=== PATIENT | female | born 1950 | race Caucasian/White ===

== ENCOUNTER 2017-11-03 07:39 | Day surgery (SDC) | payer MEDICARE, OTHER ==
[~2017-11-03] VITALS: Ht 160 cm; Wt 70.5 kg
[~2017-11-03 07:39] MED LIST: ACYC200 PO; ASPI81EC PO; CALCIUM/MAGNESIUM PO; CHOL10002 PO; Cinnamon500 MG PO; FAMC250 PO; FIBERMUCIL PO; FISH1000; FLAX PO; INSLI100I SC; INSULANI SC; JOINT EFFORT PO; LEVSOD100 PO; POTCHL20ER PO; SIMV10 PO; SKIN PO; UBID100 PO; [UNRECOGNIZED DRUG - OTHER] PO; [UNRECOGNIZED DRUG - OTHER] PO; [UNRECOGNIZED DRUG - OTHER] PO; [UNRECOGNIZED DRUG - OTHER] PO
== END 2017-11-03 09:56 | disposition home or self-care (01) ==
LOC: ORSCSDS 07:39
PROVIDERS: Internal Medicine Gastroenterology
PROC: 0DBM8ZX Excision of Descending Colon, Via Natural or Artificial Opening Endoscopic, Diagnostic (ICD-10-PCS; principal; 2017-11-03 09:00)
PROC: 0DBH8ZX Excision of Cecum, Via Natural or Artificial Opening Endoscopic, Diagnostic (ICD-10-PCS; principal; 2017-11-03 09:00)
DX: Z86.010 Personal history of colon polyps (principal); D12.4 Benign neoplasm of descending colon; D12.0 Benign neoplasm of cecum; E11.9 Type 2 diabetes mellitus without complications; Z79.4 Long term (current) use of insulin; Z79.899 Other long term (current) drug therapy; Z79.82 Long term (current) use of aspirin
CPT/HCPCS: 82947; 88305; J0330; J1980; J2405

== ENCOUNTER 2023-04-05 09:12 | Day surgery (SDC) | payer MEDICARE, OTHER ==
[~2023-04-05] VITALS: Ht 160 cm; Wt 69.4 kg
[~2023-04-05 09:12] MED LIST changes: +BASAGLAR K100 UNIT/1; +LEVSOD75 PO; +NOVOLOG FL100 UNIT/3; +ZOCOR20 MG PO
[2023-04-05] MEDS ORDERED: VALA500 (09:33)
[2023-04-05 10:55] VITALS: BP 140/58
== END 2023-04-05 10:55 | disposition home or self-care (01) ==
LOC: ORSCSDS 09:12
PROVIDERS: Internal Medicine Gastroenterology
PROC: 0DJD8ZZ Inspection of Lower Intestinal Tract, Via Natural or Artificial Opening Endoscopic (ICD-10-PCS; principal; 2023-04-05 10:30)
DX: Z12.11 Encounter for screening for malignant neoplasm of colon (principal); Z86.010 Personal history of colon polyps; E11.9 Type 2 diabetes mellitus without complications; Z79.4 Long term (current) use of insulin; Z79.899 Other long term (current) drug therapy
CPT/HCPCS: 82947; J2704; J7120